=== PATIENT | female | born 1990 | race Caucasian/White ===

== ENCOUNTER 2022-04-12 08:09 | Day surgery (SDC) | payer BC, OTHER ==
[2022-04-05 14:15] LABS: BASOPHILS % (AUTO) 0.5 % (0-1); EOSINOPHILS # (AUTO) 0.1 X10'3 (0-0.9); EOSINOPHILS % (AUTO) 1.9 % (0-6); LYMPHOCYTES # (AUTO) 2.5 X10'3 (1.1-4.8); LYMPHOCYTES % (AUTO) 36.4 % (21-51); MEAN CORPUSCULAR HEMOGLOBIN 29.1 PG (27.0-31.0); MEAN CORPUSCULAR HGB CONC 33.4 g/dL (33.0-36.5); MEAN CORPUSCULAR VOLUME 87.1 FL (78-98); MONOCYTES # (AUTO) 0.5 X10'3 (0-0.9); MONOCYTES % (AUTO) 7.5 % (2-12); NEUTROPHILS # (AUTO) 3.6 X10'3 (1.8-7.7); NEUTROPHILS % (AUTO) 53.7 % (42-75); PRE OP HEMOGLOBIN 13.7 g/dL (12.0-16.0); PRE OP PLATELET COUNT 242 X10'3 (140-440); RED CELL DISTRIBUTION WIDTH 14.3 % (11.5-14.5)
[2022-04-05 14:29] LABS: HCG SERUM QL NEGATIVE
[2022-04-05 14:38] LABS: ALBUMIN 3.9 G/DL (3.4-5.0); ALBUMIN/GLOBULIN RATIO 1.2 (1.1-1.5); ALKALINE PHOSPHATASE 105 IU/L (46-116); BLOOD UREA NITROGEN 13 MG/DL (7-18); CHLORIDE 104 MMOL/L (99-107); CREATININE 0.81 MG/DL (0.40-0.90); PRE OP ALT 76 U/L (30-65); PRE OP ANION GAP 8 (8-16); PRE OP AST 34 U/L (10-37); PRE OP BILIRUB, TOTAL 1.2 MG/DL (0.0-1.0); PRE OP GLUCOSE 90 MG/DL (70-104); PRE OP SODIUM 140 MMOL/L (135-145); TOTAL CARBON DIOXIDE 28.5 MMOL/L (24-32); TOTAL PROTEIN 7.2 G/DL (6.4-8.2); eGFR 83 ML/MIN
[~2022-04-12] VITALS: Ht 160 cm; Wt 69.8 kg
[2022-04-12] VITALS (12 sets, daily range): BP systolic 88–110; BP diastolic 47–93
[~2022-04-12 08:09] MED LIST: PNV1TABL87 PO; ceFAZolin inj. 2,000 MG in dextrose 5%-water 100 ML IV ONE; famotidine 20mg tablet PO ONE; ringers solution, lacted 1,000 ML IV SCH
[2022-04-12] MEDS ORDERED: ondansetron/PF 4mg/2ml inj IV PRN (10:20)
[2022-04-12] MEDS ORDERED: labetalol 20mg/4ml (5mg/ml) syringe IV PRN (10:20)
[2022-04-12] MEDS ORDERED: morphine 2 MG/ML inj. syringe IV PRN (10:20)
[2022-04-12] MEDS ORDERED: hydrALAZINE 20mg/ml inj. IV PRN (10:20)
[2022-04-12] MEDS ORDERED: ketorolac trometh. 30mg/ml inj. IV ONE (10:20)
[2022-04-12] MEDS ORDERED: meperidine/PF 25mg/ml syringe IV PRN ×3 (10:20)
[2022-04-12] MEDS ORDERED: proCHLORperazine 10 MG/2 ml inj IV PRN (10:20)
[2022-04-12] MEDS ORDERED: acetaminophen 1,000mg/100ml IV 100 ML IV PRN (10:20)
[2022-04-12] MEDS ORDERED: ringers solution, lacted 1,000 ML IV SCH (10:20)
[2022-04-12] MEDS ORDERED: morphine 4 MG/ML inj SYRINge IV PRN (10:20)
[2022-04-12] MEDS ORDERED: BUPIVAcaine 0.25% w/Epi /PF 30ml vial ONE (11:33)
[2022-04-12] MEDS ORDERED: sevoflurane 250ml liquid IH ONE (11:37)
[2022-04-12] MEDS ORDERED: midazolam 1 mg/ML 2ml injection ONE (11:44)
[2022-04-12] MEDS ORDERED: LIDOcaine 1%/PF 5ML 10 MG/ML VIAL ONE (11:53)
[2022-04-12] MEDS ORDERED: propofol inj 20 ML IV ONE (11:53)
[2022-04-12] MEDS ORDERED: rocuronium 10mg/ml inj IV ONE (11:53)
[2022-04-12] MEDS ORDERED: fentaNYL /PF 50mcg/ml 5ml ampule ONE (11:53)
[2022-04-12] MEDS ORDERED: ondansetron/PF 4mg/2ml inj ONE (11:54)
[2022-04-12] MEDS ORDERED: dexamethasone sod phosphate 4mg/ml inj. ONE (11:54)
[2022-04-12] MEDS ORDERED: bupivacaine 0.25%/epinephrine 1:200,000 inj (contains preserv. MDV) IM ONE (12:15)
[2022-04-12] MEDS ORDERED: neostigmine methylsulfate 1 MG/ML 10ml vial ONE (12:26)
[2022-04-12] MEDS ORDERED: glycopyrrolate 0.2mg/ml inj ONE (12:26)
--- NOTE | 2022-04-12 14:39 | NUR ---
ALL DISCHARGE CRITERIA HAS BEEN MET. VSS, PAIN AT A TOLERABLE LEVEL, ABLE TO SAFELY AMBULATE AND TRANSFER SELF. IV TAKEN OUT WITHOUT ANY COMPLICATIONS. ALL DISCHARGE INSTRUCTIONS COVERED WITH PATIENT AND ALL QUESTIONS ANSWERED. PATIENT TAKEN OUT VIA WHEELCHAIR TO PERSONAL VEHICLE WHERE FAMILY/FRIEND DROVE PATIENT HOME. Addendum: 04/12/22 at 1456 by Elizabeth Kerr RN Amended: Links added.
--- NOTE | 2022-04-12 14:39 | NUR ---
PT C/O NAUSEA AT TIME OF D/C. NURSE GAVE BOTH MEDICATIONS AVAILABLE TO RESOLVE THIS. PT STATES THAT WHEN SHE HAD PREVIOUS SURGERIES (EYE SURGERY), SHE HAS N/V AND WAS WORSE THAN WHAT SHE IS EXPERIENCING. EDUCATED ON CALLING OUR UNIT, THE ED OR THE DOCTORS NUMBER FOR FURTHER INTERVENTION IF NEEDED. PT EXPRESSES UNDERSTANDING Addendum: 04/12/22 at 1501 by Elizabeth Kerr RN Amended: Links added.
== END 2022-04-12 14:39 | disposition home or self-care (01) ==
LOC: PAS 08:09
PROVIDERS: ATTEND Obstetrics & Gynecology
DX: Z30.2 Encounter for sterilization (principal); K21.9 Gastro-esophageal reflux disease without esophagitis; Z87.19 Personal history of other diseases of the digestive system; Z98.890 Other specified postprocedural states
CPT/HCPCS: 36415; 58670; 80053; 82948; 84703; 85025; J0131; J0690; J0780; J1100; J1885; J2175; J2250; J2405; J2704; J2710; J3010; J3490; J7060; J7120; S0020; Z7506; Z7508; Z7512; A4618; A7000